=== PATIENT | male | born 1950 | race Caucasian/White ===

== ENCOUNTER → 2016-10-31 | Outpatient (REF) | payer OTHER ==
[~2016-10-31] MED LIST: MULT1TAB8 PO; OMEG100011 PO; VITA200016 PO
[2016-10-31 13:46] LABS: CORTISOL AM 16.1 UG/DL (4.3-22.4)
[2016-11-01 11:25] LABS: PRETREATED FOLATE FOR RBCFOL 10.7 NG/ML
[2016-11-05 14:13] LABS: MERCURY BLOOD 3.6 ug/L (0.0-14.9)
== END ==
LOC: M LAB REF 12:24
PROVIDERS: ATTEND Family Medicine
DX: F41.0 Panic disorder [episodic paroxysmal anxiety] (principal); E55.9 Vitamin D deficiency, unspecified; Z79.899 Other long term (current) drug therapy; Z77.011 Contact with and (suspected) exposure to lead; R11.2 Nausea with vomiting, unspecified; R10.9 Unspecified abdominal pain

== ENCOUNTER 2019-01-11 09:18 | Emergency (ER) | payer MEDICARE ==
[~2019-01-11] VITALS: Ht 170.2 cm; Wt 81.8 kg
[2019-01-11] MEDS ORDERED: LOSA50TA88 (09:58)
[2019-01-11] MEDS ORDERED: LORA0.5T11 (09:58)
[2019-01-11 10:00] LABS: BASO # 0.1 10^3/uL (0.0-0.2); BASO % 1.1 % (0.0-1.0); EOS # 0.3 10^3/uL (0.0-0.50); EOS % 6.1 % (0.0-3.0); HEMATOCRIT 43.2 % (42.0-52.0); HEMOGLOBIN 14.5 g/dl (13.5-17.5); LYMPH # 1.8 10^3/uL (1.5-4.5); LYMPH % 32.7 % (24.0-44.0); MEAN CORPUSCULAR HEMOGLOBIN 30.9 pg (27.0-33.0); MEAN CORPUSCULAR HGB CONC 33.6 g/dl (32.0-36.5); MEAN CORPUSCULAR VOLUME 92.1 fl (80.0-96.0); MONO # 0.4 10^3/uL (0.0-0.8); MONO % 7.9 % (0.0-5.0); NEUTROPHILS # 2.9 10^3/uL (1.8-7.7); PLATELET COUNT, AUTOMATED 190 10^3/uL (150-450); RED BLOOD COUNT 4.69 10^6/uL (4.30-6.10); WHITE BLOOD COUNT 5.6 10^3/uL (4.0-10.0)
--- NOTE | 2019-01-11 10:22 | REP ---
RIGHT ANKLE: Four views. HISTORY: Trauma. FINDINGS: Four views right ankle show an intact ankle mortise. There is minimal plantar calcaneal spurring. There is a small accessory ossicle adjacent to the fibular tip seen on oblique radiograph. Bones, joints and soft tissues are otherwise unremarkable. IMPRESSION: Accessory ossicle adjacent to the distal fibula. No acute bony abnormality. Electronically Signed by Montez Hernandez MD 01/11/2019 01:32 P
[2019-01-11 10:48] LABS: BLOOD UREA NITROGEN 21 MG/DL (7-18); CALCIUM LEVEL 9.2 MG/DL (8.8-10.2); CARBON DIOXIDE LEVEL 24 MEQ/L (21-32); CHLORIDE LEVEL 112 MEQ/L (98-107); CREATININE FOR GFR 1.23 MG/DL (0.70-1.30); GLOMERULAR FILTRATION RATE > 60.0 (>49); GLUCOSE, FASTING 92 MG/DL (70-100); POTASSIUM SERUM 4.5 MEQ/L (3.5-5.1); SODIUM LEVEL 144 MEQ/L (136-145)
[2019-01-11 12:40] VITALS: BP 144/89
--- NOTE | 2019-01-11 20:35 | ECGEPIP ---
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
== END 2019-01-11 13:10 | disposition home or self-care (01) ==
LOC: M ED 09:18
DX: S86.011A Strain of right Achilles tendon, initial encounter (principal); X58.XXXA Exposure to other specified factors, initial encounter; Y92.89 Other specified places as the place of occurrence of the external cause; Y93.67 Activity, basketball; R94.31 Abnormal electrocardiogram [ECG] [EKG]; I10 Essential (primary) hypertension; Z88.8 Allergy status to other drugs, medicaments and biological substances; Z79.899 Other long term (current) drug therapy

== ENCOUNTER 2019-01-15 16:00 | Day surgery (SDC) | payer MEDICARE ==
[~2019-01-15] VITALS: Ht 170.2 cm; Wt 81.6 kg
[~2019-01-15 16:00] MED LIST changes: +GLYCOPYRROLATE INJ 0.2 MG/ML 2 ML VIAL As Ordered ONE; +HYDROmorphone HCL 2 MG/ML 1ML VIAL (J1170) As Ordered ONE; +LIDOCAINE 2% INJ 100 MG/5 ML SDV (FOR ANES.) As Ordered ONE; +LORA0.5T11; +LOSA50TA88; +LR 1,000 ML IV SCH; +MIDAZOLAM INJ 2 MG/2 ML VIAL (J2250) As Ordered ONE; +NEOSTIGMINE 10 MG/10 ML VIAL (J2710) As Ordered ONE; +ONDANSETRON 4MG/2ML VIAL (J2405) As Ordered ONE; +PROPOFOL 200 MG/20 ML VIAL As Ordered ONE; +ROCURONIUM BROMIDE 50 MG/5 ML VIAL As Ordered ONE; +SCOPOLAMINE 1MG TRANSDERMAL PATCH As Ordered ONE; +SCOPOLAMINE 1MG TRANSDERMAL PATCH TOP ONE; +ceFAZolin 2 GM/D5W 50 ML IV BAG (J0690 PER 500MG) As Ordered ONE; +dexameTHASONE 4 MG/ML 1ML VIAL (J1100) As Ordered ONE; +fentaNYL 100 MCG/2 ML INJECTION (J3010) As Ordered ONE
[2019-01-15] MEDS: PERCOCET 5MG/325MG TAB PO PRN ×2 (17:09→17:45)
[2019-01-15] MEDS: fentaNYL 100 MCG/2 ML INJECTION (J3010) IV PRN ×2 (17:09→17:30)
[2019-01-15] MEDS ORDERED: LR 1,000 ML IV SCH ×2 (17:15→18:00)
[2019-01-15] MEDS ORDERED: oxyCODONE 5MG TAB PO PRN (17:15)
[2019-01-15] MEDS ORDERED: ONDANSETRON 4MG/2ML VIAL (J2405) IV PRN (17:15)
[2019-01-15] MEDS ORDERED: MIDAZOLAM INJ 2 MG/2 ML VIAL (J2250) As Ordered ONE (19:35)
[2019-01-15] MEDS ORDERED: fentaNYL 100 MCG/2 ML INJECTION (J3010) As Ordered ONE (19:35)
[2019-01-15 20:20] VITALS: BP 138/71
[2019-01-16] MEDS ORDERED: LIDOCAINE 1% MDV 20ML VIAL ONE (04:58)
--- NOTE | 2019-01-16 14:32 | RO ---
DATE OF SURGERY: 01/15/2019 PREOPERATIVE DIAGNOSIS: Right acute Achilles tendon tear. POSTOPERATIVE DIAGNOSIS: Right acute Achilles tendon tear. PROCEDURE: Repair right Achilles tendon. SURGEON: Zahida Fischer MD LITHOPLATE MAKER: Noy Moulton PA-C ANESTHESIA: General endotracheal. ESTIMATED BLOOD LOSS (EBL): 25 mL. COMPLICATIONS: None. CONDITION: Stable to recovery. INDICATIONS: Vitaly Miller is a 68-year-old gentleman who sustained an acute rupture of the Achilles tendon while playing basketball. The patient was offered both conservative and surgical management. He has elected for surgical repair of the tendon. The risks and benefits of surgery were discussed with the patient in detail and include but are not limited to infection, damage to nerves and blood vessels, continued pain and stiffness, and need for additional procedures. Informed consent was obtained in the office. DESCRIPTION OF PROCEDURE: The patient was met in the preoperative holding area, where the right lower extremity was marked as the correct operative site. He was taken to the operating room, where he underwent general endotracheal anesthesia. A sterile tourniquet was placed on the right upper thigh. The patient was placed into the prone position. All bony prominences were well padded. The right lower extremity underwent a chlorhexidine scrub. Both legs were prepped and draped in the normal sterile fashion. An official time-out was held, where the correct patient, operative site, and operative procedure were verified. The patient did receive antibiotics within 60 minutes prior to incision. Incision was marked out just medial to the midline of the Achilles tendon. This was approximately 3 mg in length on either side of the palpable gap. The leg was exsanguinated, and the tourniquet was inflated to 250 mmHg. It was up for 82 minutes. Incision was made with a #15 blade. Dissection was performed down to the level of the paratenon with care not to raise any flaps. The paratenon was incised. There was a complete tear of the Achilles tendon just distal to the musculotendinous junction. There was not a large gap between the tendon ends. The area was debrided. Using #2 FiberWire, a Krackow stitch was placed on both the medial and lateral borders of both the proximal and distal tendon ends. Following this, using a Hema needle, a #2 FiberWire was placed in the distal aspect of the Achilles tendon, and a Shawn-type weave was created. Similarly, this was done in the proximal portion of the tendon, as well. The Krackow stitches were tied down. This was found to have appropriate tension with comparison to the other side. The Shawn stitches were then tied down. There was good opposition, and I was satisfied with their pair at this point. Copious irrigation as performed to the tendon. There was some slight thickening of the tendon distally with a small degree of tendinosis. However, this did not appear to be severe. The paratenon was then closed using 2-0 Vicryl. Following this, subcutaneous tissues were closed using 3-0 Vicryl. The skin was closed using 3-0 nylon. The patient was placed into a well-padded splint. He was transferred to the supine position on the hospital bed, where he was extubated. Then, he was then transferred to the recovery room in stable condition. PLAN: The patient will be nonweightbearing in the right lower extremity. We will see him back in 1 week for a wound check. He will be on Xarelto for deep venous thrombosis (DVT) prophylaxis.
== END 2019-01-15 20:20 | disposition home or self-care (01) ==
LOC: M SDC 16:00
PROVIDERS: ATTEND Orthopaedic Surgery
DX: S86.011A Strain of right Achilles tendon, initial encounter (principal); Y93.67 Activity, basketball; Y92.310 Basketball court as the place of occurrence of the external cause; Y99.9 Unspecified external cause status; I10 Essential (primary) hypertension; Z88.8 Allergy status to other drugs, medicaments and biological substances; Z79.899 Other long term (current) drug therapy; F32.9 Major depressive disorder, single episode, unspecified
CPT/HCPCS: 27650; J0690; J1100; J1170; J2250; J2405; J2710; J3010

== ENCOUNTER 2019-12-06 12:35 | Emergency (ER) | payer MEDICARE ==
[~2019-12-06] VITALS: Ht 172.7 cm; Wt 77.3 kg
[~2019-12-06 12:35] MED LIST changes: -GLYCOPYRROLATE INJ 0.2 MG/ML 2 ML VIAL As Ordered ONE; -HYDROmorphone HCL 2 MG/ML 1ML VIAL (J1170) As Ordered ONE; -LIDOCAINE 2% INJ 100 MG/5 ML SDV (FOR ANES.) As Ordered ONE; -LORA0.5T11; +LORA0.5T5; -LR 1,000 ML IV SCH; -MIDAZOLAM INJ 2 MG/2 ML VIAL (J2250) As Ordered ONE; -NEOSTIGMINE 10 MG/10 ML VIAL (J2710) As Ordered ONE; -ONDANSETRON 4MG/2ML VIAL (J2405) As Ordered ONE; -PROPOFOL 200 MG/20 ML VIAL As Ordered ONE; -ROCURONIUM BROMIDE 50 MG/5 ML VIAL As Ordered ONE; -SCOPOLAMINE 1MG TRANSDERMAL PATCH As Ordered ONE; -SCOPOLAMINE 1MG TRANSDERMAL PATCH TOP ONE; -ceFAZolin 2 GM/D5W 50 ML IV BAG (J0690 PER 500MG) As Ordered ONE; -dexameTHASONE 4 MG/ML 1ML VIAL (J1100) As Ordered ONE; -fentaNYL 100 MCG/2 ML INJECTION (J3010) As Ordered ONE
[2019-12-06 13:16] LABS: BASO # 0.1 10^3/uL (0.0-0.2); EOS # 0.1 10^3/uL (0.0-0.5); EOS % 1.5 % (0.0-3.0); HEMATOCRIT 45.2 % (42.0-52.0); HEMOGLOBIN 15.8 g/dl (13.5-17.5); LYMPH # 1.1 10^3/uL (1.5-5.0); LYMPH % 15.8 % (24.0-44.0); MEAN CORPUSCULAR HEMOGLOBIN 31.6 pg (27.0-33.0); MEAN CORPUSCULAR VOLUME 90.4 fl (80.0-96.0); MONO # 0.5 10^3/uL (0.0-0.8); MONO % 7.6 % (0.0-5.0); NEUTROPHILS # 5.3 10^3/uL (1.5-8.5); NEUTROPHILS % 73.8 % (36.0-66.0); PLATELET COUNT, AUTOMATED 215 10^3/uL (150-450); WHITE BLOOD COUNT 7.1 10^3/uL (4.0-10.0)
[2019-12-06 13:32] LABS: PROTHROMBIN TIME 12.9 SECONDS (11.8-14.0)
--- NOTE | 2019-12-06 13:39 | REP ---
Portable chest x-ray: Single view. History: Chest pain. No comparison chest x-ray. Findings: The lungs are well inflated and clear. The pleural angles are sharp. Heart size is normal. EKG monitoring electrodes are seen overlying the chest. There is an old healed midshaft fracture of the right clavicle with some residual deformity. The heart is not enlarged. Impression: No active cardiopulmonary disease. Old healed right clavicle fracture. Electronically Signed by Montez Hernandez MD 12/06/2019 01:31 P
[2019-12-06 13:46] LABS: ALBUMIN 3.9 GM/DL (3.2-5.2); ALT/SGPT 31 U/L (12-78); BILIRUBIN,DIRECT 0.2 MG/DL (0.0-0.2); BILIRUBIN,TOTAL 0.9 MG/DL (0.2-1.0); BLOOD UREA NITROGEN 17 MG/DL (7-18); CALCIUM LEVEL 9.6 MG/DL (8.8-10.2); CARBON DIOXIDE LEVEL 27 MEQ/L (21-32); CHLORIDE LEVEL 107 MEQ/L (98-107); CK-MB VALUE MASS 1.1 NG/ML (<3.6); CPK CREATINE PHOSPHOKINASE 115 U/L (39-308); CREATININE FOR GFR 1.01 MG/DL (0.70-1.30); FREE T4 1.18 NG/DL (0.76-1.46); GLOMERULAR FILTRATION RATE > 60.0 (>49); GLUCOSE, FASTING 93 MG/DL (70-100); LIPASE 127 U/L (73-393); MAGNESIUM LEVEL 2.2 MG/DL (1.8-2.4); MB/CK RELATIVE INDEX 0.96 (< OR =4); NT-PRO BNP 31 PG/ML (<125); SODIUM LEVEL 141 MEQ/L (136-145); THYROID STIMULATING HORMONE 0.953 uIU/ML (0.358-3.740); TOTAL PROTEIN 7.1 GM/DL (6.4-8.2); TROPONIN I < 0.02 NG/ML (< 0.10)
[2019-12-06 14:40] VITALS: BP 117/67
--- NOTE | 2019-12-07 07:18 | ECGEPIP ---
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
== END 2019-12-06 15:22 | disposition home or self-care (01) ==
LOC: M ED 12:35
DX: I49.3 Ventricular premature depolarization (principal); I10 Essential (primary) hypertension; F41.9 Anxiety disorder, unspecified; Z79.899 Other long term (current) drug therapy; Z88.8 Allergy status to other drugs, medicaments and biological substances

== ENCOUNTER 2020-04-01 08:05 | Emergency (ER) | payer MEDICARE ==
[~2020-04-01] VITALS: Ht 170.2 cm; Wt 77.3 kg
[2020-04-01 08:51] LABS: BASO % 0.8 % (0.0-1.0); EOS # 0.2 10^3/uL (0.0-0.5); EOS % 3.3 % (0.0-3.0); HEMATOCRIT 42.2 % (42.0-52.0); HEMOGLOBIN 14.5 g/dl (13.5-17.5); LYMPH % 38.1 % (24.0-44.0); MEAN CORPUSCULAR HEMOGLOBIN 30.7 pg (27.0-33.0); MEAN CORPUSCULAR HGB CONC 34.4 g/dl (32.0-36.5); MEAN CORPUSCULAR VOLUME 89.2 fl (80.0-96.0); MONO # 0.3 10^3/uL (0.0-0.8); MONO % 5.4 % (0.0-5.0); NEUTROPHILS # 2.7 10^3/uL (1.5-8.5); NEUTROPHILS % 52.2 % (36.0-66.0); PLATELET COUNT, AUTOMATED 204 10^3/uL (150-450); RED BLOOD COUNT 4.73 10^6/uL (4.30-6.10); WHITE BLOOD COUNT 5.2 10^3/uL (4.0-10.0)
--- NOTE | 2020-04-01 09:14 | REP ---
The fifth CT brain: 04/01/2020. Indication: Dizziness. Emesis. Technique: Unenhanced axial CT images of the brain were obtained from skull base to vertex with coronal reconstructions provided. Comparison: None. Findings: There is no acute intracranial hemorrhage, acute cortical infarction, mass effect, hydrocephalus or significant mastoid effusion. Mild diffuse volume loss is present. Paranasal sinus mucosal disease is present which appears chronic most pronounced on the left. Impression: No acute intracranial process. Paranasal sinus mucosal disease. Mild diffuse volume loss. Electronically Signed by Bethel Guerin DO 04/01/2020 09:05 A
[2020-04-01] MEDS ORDERED: LORazepam 2 MG/ML VIAL IV STA (09:22)
[2020-04-01] MEDS ORDERED: NS 500 ML IV ONE (09:30)
--- NOTE | 2020-04-01 09:52 | ECGEPIP ---
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
[2020-04-01 10:01] LABS: ALBUMIN 3.8 GM/DL (3.2-5.2); ALT/SGPT 35 U/L (12-78); BILIRUBIN,DIRECT 0.2 MG/DL (0.0-0.2); BILIRUBIN,TOTAL 0.8 MG/DL (0.2-1.0); BLOOD UREA NITROGEN 16 MG/DL (7-18); CALCIUM LEVEL 9.3 MG/DL (8.8-10.2); CARBON DIOXIDE LEVEL 26 MEQ/L (21-32); CHLORIDE LEVEL 106 MEQ/L (98-107); CK-MB VALUE MASS < 1.0 NG/ML (<3.6); CPK CREATINE PHOSPHOKINASE 84 U/L (39-308); CREATININE FOR GFR 1.03 MG/DL (0.70-1.30); GLOMERULAR FILTRATION RATE > 60.0 (>49); GLUCOSE, FASTING 142 MG/DL (70-100); LIPASE 89 U/L (73-393); MB/CK RELATIVE INDEX 1.19 (< OR =4); NT-PRO BNP 37 PG/ML (<125); POTASSIUM SERUM 3.4 MEQ/L (3.5-5.1); SODIUM LEVEL 140 MEQ/L (136-145); TOTAL PROTEIN 6.7 GM/DL (6.4-8.2); TROPONIN I < 0.02 NG/ML (< 0.10)
[2020-04-01 10:14] VITALS: BP 135/69
== END 2020-04-01 10:21 | disposition home or self-care (01) ==
LOC: M ED 08:05
DX: F41.0 Panic disorder [episodic paroxysmal anxiety] (principal); I10 Essential (primary) hypertension; Z88.5 Allergy status to narcotic agent; Z88.8 Allergy status to other drugs, medicaments and biological substances
CPT/HCPCS: 70450; 80048; 80076; 82550; 82553; 83690; 83880; 84439; 84443; 84484; 85025; 93005; 96361; 96374; 99284; J2060

== ENCOUNTER → 2021-08-17 | Outpatient (CLI) | payer MEDICARE ==
--- NOTE | 2021-08-17 09:48 | REP ---
INDICATION: AAA SCREENING , HX SMOKER COMPARISON: None. TECHNIQUE: Multiple ultrasonographic images of the abdominal aorta were obtained from the level of the celiac access to the aortoiliac bifurcation and the longitudinal and transverse scan planes along with color Doppler imaging. FINDINGS: The maximal AP dimension of the abdominal aorta as measured in the longitudinal scan plane is 2.6 cm. There is no evidence of common iliac arterial ectasia. IMPRESSION: No evidence of abdominal aortic aneurysm. <Electronically signed by Henri Jin > 08/17/21 [id number]
== END ==
LOC: M RAD 07:55
PROVIDERS: ATTEND Family Medicine
DX: Z13.6 Encounter for screening for cardiovascular disorders (principal); Z87.891 Personal history of nicotine dependence

== ENCOUNTER → 2024-02-05 | Outpatient (CLI) | payer MEDICARE ==
[~2024-02-05] MED LIST changes: +LOSA50TA28; -LOSA50TA88
== END ==
LOC: M PLAIMG 09:54
PROVIDERS: ATTEND Family Medicine
DX: I77.810 Thoracic aortic ectasia (principal); I35.1 Nonrheumatic aortic (valve) insufficiency

== ENCOUNTER → 2024-09-12 | Outpatient (CLI) | payer MEDICARE | LOC: M WUC 11:53 | PROVIDERS: ATTEND Physician Assistant Medical | DX: M25.561 Pain in right knee (principal) ==

== ENCOUNTER 2025-01-23 06:39 | Day surgery (SDC) | payer MEDICARE ==
[~2025-01-23] VITALS: Ht 170.2 cm; Wt 76.6 kg
[~2025-01-23 06:39] MED LIST changes: +ATIV1TAB10 PO; +ATOR1TAB19 PO; +D31000CA4 PO; +EQL50TAB2 PO; -LOSA50TA28; +LOSA50TA28 PO; +VITA100065 PO
[2025-01-23 07:42] VITALS: TEMP 98.1
[2025-01-23 07:56] VITALS: BP 104/56; O2SAT 95
== END 2025-01-23 08:06 | disposition home or self-care (01) ==
LOC: M OPP 06:39
PROVIDERS: ATTEND Surgery
DX: Z12.11 Encounter for screening for malignant neoplasm of colon (principal); Z88.6 Allergy status to analgesic agent; Z79.899 Other long term (current) drug therapy; Z87.891 Personal history of nicotine dependence